=== PATIENT | male | born 1965 | race Hispanic/Latino ===

== ENCOUNTER 2017-04-06 16:49 | Emergency (ER) | payer SELFPAY ==
[2017-04-06 17:02] VITALS: BP 169/81; PULSE 79; RESP 18; TEMP 97.9; O2SAT 100; BMI 27.8
--- NOTE | 2017-04-06 19:07 | C.PDOC ---
History Of Present Illness 51 y/o male with htn, neuropathy, dm presents to ED with complaint of left foot pain; pt sts he missed his clinic appt last week and has run out of medications for pain and blood pressure. pt reports he has an appt this coming . pt requesting refill of Tramadol and nifedipine. pt denies any new complaints. Time Seen by Provider: 04/06/17 17:31 Chief Complaint (Nursing): Lower Extremity Problem/Injury History/Exam Limitations: no limitations Onset/Duration Of Symptoms: Other (chronic) Current Symptoms Are (Timing): Still Present Severity: Moderate Past Medical History Reviewed: Historical Data, Nursing Documentation, Vital Signs Vital Signs: Last Vital Signs Temp 97.9 F 04/06/17 17:02 Pulse 79 04/06/17 17:02 Resp 18 04/06/17 17:02 BP 169/81 H 04/06/17 17:02 Pulse Ox 100 04/07/17 13:48 - Medical History PMH: Back Problems, Diabetes, HTN Other PMH: neuropathy Family History: States: Unknown Family Hx - Social History Hx Tobacco Use: No Hx Alcohol Use: No Hx Substance Use: No - Immunization History Hx Tetanus Toxoid Vaccination: Yes (2 YEARS AGO) Hx Influenza Vaccination: Yes Hx Pneumococcal Vaccination: Yes Review Of Systems Constitutional: Negative for: Fever, Chills Cardiovascular: Negative for: Chest Pain Respiratory: Negative for: Cough Skin: Negative for: Rash Neurological: Negative for: Weakness, Numbness, Headache, Dizziness Physical Exam - Physical Exam Appears: Non-toxic, No Acute Distress Skin: Normal Color, Warm, Dry Head: Atraumatic, Normacephalic Extremity: Normal ROM, Tenderness, Pedal Edema (bilateral +1 pitting), No Calf Tenderness, Other (well healed scar to dorsum of left foot, ) Extremity: Bilateral: Atraumatic Pulses: Left Dorsalis Pedis: Normal, Right Dorsalis Pedis: Normal Neurological/Psych: Oriented x3, Normal Speech, Normal Cognition, Normal Motor, Normal Sensation ED Course And Treatment O2 Sat by Pulse Oximetry: 100 Medical Decision Making Medical Decision Making: [place] Rx reviewed for patient. pt has had multiple refills of tramadol in last few months, most notably an 8 day refill on 03/11/17 and a 5 day refill on 03/24/17. pt notified I would be unable to give a third refill of narcotic pain medication to him; pt became verbally abusive, telling me to 'go f--- myself', telling me I was lying, despite me explaining new law regarding mediation refills. . pt walked out of ED without waiting for htn medication refill. Disposition - Disposition Disposition: ELOPEMENT - ER ONLY Disposition Time: 18:40 Condition: GOOD - Clinical Impression Clinical Impression: Chronic pain, Medication refill
== END 2017-04-06 18:41 | disposition left against medical advice (07) ==
LOC: C.ER 16:49
DX: G89.29 Other chronic pain (principal); Z76.0 Encounter for issue of repeat prescription

== ENCOUNTER 2017-07-06 18:33 | Emergency (ER) | payer SELFPAY ==
[2017-07-06 18:33] VITALS: BMI 27.8
[2017-07-06 18:39] VITALS: BP 164/78; PULSE 79; RESP 18; TEMP 98; O2SAT 100
== END 2017-07-06 18:39 | disposition left against medical advice (07) ==
LOC: C.ER 18:33
DX: M79.606 Pain in leg, unspecified (principal); Z02.9 Encounter for administrative examinations, unspecified

== ENCOUNTER 2017-07-07 21:03 | Emergency (ER) | payer SELFPAY ==
[2017-07-07 21:04] VITALS: BMI 27.8
[2017-07-07 21:17] VITALS: RESP 18; O2SAT 100
--- NOTE | 2017-07-07 21:28 | C.PDOC ---
History Of Present Illness A 51 year old male, whose past medical history includes hypertension, non- insulin dependent diabetes mellitus, diabetic neuropathy, chronic lower legs pain, presents to the emergency department requesting refill on " all my medication". The patient reports, he ran out of his medications a few days ago. At present time, Pt complaining of right lower leg pain worse for past few days. Patrient admits, " pain is chronic, had similar in past, need Tramadol for pain". Otherwise, patient denies severe headaches,dizziness, fever, vision changes, focal deficits, chest pain, shortness of breath, dyspnea, palpitation, diaphoresis, abdominal pain, nausea, vomiting, diarrhea, denies new weakness, sensory or vascular deficits to B/L LEs. Ambulate to ED for evaluation, not in any apparent distress. FSBS 123 Time Seen by Provider: 07/07/17 21:15 Chief Complaint (Nursing): Med Refill History Per: Patient History/Exam Limitations: no limitations Onset/Duration Of Symptoms: Other Past Medical History Vital Signs: Last Vital Signs Temp 97.8 F 07/07/17 21:06 Pulse 75 07/07/17 21:06 Resp 18 07/07/17 21:06 BP 198/82 H 07/07/17 21:06 Pulse Ox 100 07/07/17 21:46 - Medical History PMH: Back Problems, Diabetes, HTN Family History: States: Unknown Family Hx - Social History Hx Tobacco Use: No Hx Alcohol Use: No Hx Substance Use: No - Immunization History Hx Tetanus Toxoid Vaccination: Yes Hx Influenza Vaccination: Yes Hx Pneumococcal Vaccination: Yes Review Of Systems Except As Marked, All Systems Reviewed And Found Negative. Constitutional: Negative for: Fever Eyes: Negative for: Vision Change Cardiovascular: Negative for: Chest Pain Respiratory: Negative for: Shortness of Breath Gastrointestinal: Negative for: Nausea, Vomiting, Abdominal Pain, Diarrhea Neurological: Negative for: Weakness, Numbness, Change in Speech, Confusion, Headache Physical Exam - Physical Exam Appears: Well, Non-toxic, No Acute Distress Skin: Normal Color, Warm, Dry Head: Normacephalic Eye(s): bilateral: PERRL Nose: No Flaring, No Discharge Oral Mucosa: Moist, No Drooling Throat: No Drooling Neck: Supple Cardiovascular: Rhythm Regular, No JVD, Other ((-) carotid bruits) Respiratory: No Stridor, No Wheezing Gastrointestinal/Abdominal: Soft, No Tenderness, No Distention, No Guarding Back: No CVA Tenderness Extremity: No Pedal Edema, No Calf Tenderness (B/L), No Deformity, Other (trace ankle edema to bilaterally, no erythema.) Extremity: Bilateral: Atraumatic Neurological/Psych: Oriented x3, Normal Speech, Normal Cognition, Normal Motor, Normal Sensation, Normal Reflexes ED Course And Treatment O2 Sat by Pulse Oximetry: 100 Pulse Ox Interpretation: Normal Progress Note: On re-evaluation, pt is afebrile, hemodynamicaly stable. Non- toxic. AMbulatory in ED with stable gait. PUlseOx 100% RA. ENT: no acute findings. Neck: Supple, (-) JVD, (-) catorid bruits. CVS: (+)S1S2, reg, (-) murmur. Lungs: CTA B/L, BS equal B/L. ABd: benign. Neuorlogicaly intact. Pt was medicated in ED. [place] review, pt has multiple rx for Tramadol with last written on 06/28/17 #10 by ED provider from [facility]. PT has clinical findings c/w HTN, NIDDM, chronic pain, medication refill. Pt advised. ref. to f/u with PMD in 2-3 days for re-eval. and further medictaion refill, pain control. return to ED if any new changes. Medical Decision Making Medical Decision Making: Treatment Plan: -- Glucotrol, metFORMIN, Procardia, Ultram Progress Notes: Disposition Counseled Patient/Family Regarding: Diagnosis, Need For Followup, Rx Given - Disposition Referrals: Zahra Muñoz MD [Primary Care Provider] - [facility] [Outside] Disposition: HOME/ ROUTINE Disposition Time: 22:14 Condition: STABLE Additional Instructions: Take medication as prescribed Follow up with PMD, Pain Management in 2-3 days for re-evaluation and further medication refill. Return to ED if any worsening or new changes. Prescriptions: GlipiZIDE [Glucotrol] 5 mg PO DAILY #20 tab metFORMIN [glucOPHAGE] 500 mg PO BID #30 tab NIFEdipine ER [Procardia XL] 60 mg PO DAILY #14 ter traMADol [Ultram] 50 mg PO Q12 #10 tab Instructions: Medicine Refill (ED), Hypertension (ED), Diabetes Mellitus Type 2 in Adults (ED), Diabetic Neuropathy (ED) Forms: [facility] (Pashto) - Clinical Impression Clinical Impression: Hypertension, Neuropathy, Diabetes, Medication refill - Scribe Statement The provider has reviewed the documentation as recorded by the Scribe Sheree Hillman All medical record entries made by the Scribe were at my direction and personally dictated by me. I have reviewed the chart and agree that the record accurately reflects my personal performance of the history, physical exam, medical decision making, and the department course for this patient. I have also personally directed, reviewed, and agree with the discharge instructions and disposition.
[2017-07-07] MEDS ORDERED: NIFEdipine 60 mg ER Tab PO STA ×2 (21:48→21:53)
[2017-07-07 22:20] VITALS: BP 190/81; PULSE 68; TEMP 98.1
== END 2017-07-07 22:40 | disposition home or self-care (01) ==
LOC: C.ER 21:03 → SUPCPDRO 21:03 → C.ER 22:40
DX: Z76.0 Encounter for issue of repeat prescription (principal); I10 Essential (primary) hypertension; E11.40 Type 2 diabetes mellitus with diabetic neuropathy, unspecified

== ENCOUNTER 2017-11-08 19:43 | Emergency (ER) | payer SELFPAY ==
[2017-11-08 19:44] VITALS: BMI 27.8
[2017-11-08 20:32] VITALS: BP 183/83; PULSE 78; RESP 20; TEMP 98; O2SAT 98
--- NOTE | 2017-11-08 20:50 | C.PDOC ---
History Of Present Illness 51 years old patient presents to ED stating that he has lost his medication metformin and tramadol.Patient is requesting for a refill and states his last dose was today. Patient denies any physical complaints. Time Seen by Provider: 11/08/17 20:38 Chief Complaint (Nursing): Med Refill History Per: Patient History/Exam Limitations: no limitations Onset/Duration Of Symptoms: Hrs Current Symptoms Are (Timing): Still Present Recent travel outside of the [place]: No Past Medical History Reviewed: Historical Data, Nursing Documentation, Vital Signs Vital Signs: Last Vital Signs Temp 98 F 11/08/17 20:28 Pulse 78 11/08/17 20:28 Resp 20 11/08/17 20:28 BP 183/83 H 11/08/17 20:28 Pulse Ox 98 11/09/17 01:44 - Medical History PMH: Back Problems, Diabetes, HTN Surgical History: No Surg Hx Family History: States: No Known Family Hx - Social History Hx Tobacco Use: No Hx Alcohol Use: No Hx Substance Use: No - Immunization History Hx Tetanus Toxoid Vaccination: Yes Hx Influenza Vaccination: Yes Hx Pneumococcal Vaccination: Yes Review Of Systems Psych: Negative for: Depression, Suicidal ideation ED Course And Treatment O2 Sat by Pulse Oximetry: 98 (Room air ) Pulse Ox Interpretation: Normal Medical Decision Making Medical Decision Making: [place] MEDIA RELATIONS MANAGER AWARE shows patient has long Hx of prescription refills of Tramadol for more than a year. Patient was advised he can not be prescribed with Tramadol since he was last prescribed November 05; then patient became angry and left before obtaining Physical Exam. Disposition - Disposition Disposition: ELOPEMENT - ER ONLY Disposition Time: 20:50 Condition: STABLE Forms: [facility] (French) - Clinical Impression Clinical Impression: Medication refill - PA / [employer]ICER / Resident Statement MD/DO has reviewed & agrees with the documentation as recorded. - Scribe Statement The provider has reviewed the documentation as recorded by the Romulo Jackson All medical record entries made by the Claudiaibyajaira were at my direction and personally dictated by me. I have reviewed the chart and agree that the record accurately reflects my personal performance of the history, physical exam, medical decision making, and the department course for this patient. I have also personally directed, reviewed, and agree with the discharge instructions and disposition.
== END 2017-11-08 20:51 | disposition left against medical advice (07) ==
LOC: C.ER 19:43
DX: Z76.0 Encounter for issue of repeat prescription (principal); I10 Essential (primary) hypertension; E11.9 Type 2 diabetes mellitus without complications

== ENCOUNTER 2018-04-07 18:21 | Emergency (ER) | payer OTHER ==
[2018-04-07 18:21] VITALS: BMI 27.8
[2018-04-07 18:30] VITALS: BP 181/85; PULSE 77; RESP 18; TEMP 98.7; O2SAT 100
--- NOTE | 2018-04-07 18:44 | C.PDOC ---
History Of Present Illness 52 year old male presents to the ER requesting a refill of his medications. Patient ran out yesterday, he is pending a follow up with his PMD, states "I THOUGHT I COULD LAST UNTIL THEN". He is currently complaining of exacerbation of her chronic leg harris. Denies any new symptoms or injury. REQUESTING MED REFILL. PS RAN OUT YESTERDAY, PENDING PMD FU 04/10. "I THOUGHT I COULD LAST UNTIL THEN". CO EXAC CHRONIC B/L LOWER LEG PAIN. NO NEW SX, INJURY EXAM MILD DIST NONTOXIC EXT ATRAUM NO SWELL REMAINDE RNEG Time Seen by Provider: 04/07/18 18:41 Chief Complaint (Nursing): Med Refill History Per: Patient History/Exam Limitations: no limitations Onset/Duration Of Symptoms: Hrs Recent travel outside of the [place]: No Past Medical History Reviewed: Historical Data, Nursing Documentation, Vital Signs Vital Signs: Last Vital Signs Temp 98.7 F 04/07/18 18:27 Pulse 77 04/07/18 18:27 Resp 18 04/07/18 18:27 BP 181/85 H 04/07/18 18:27 Pulse Ox 100 04/07/18 18:44 - Medical History PMH: Back Problems, Diabetes, HTN Family History: States: Unknown Family Hx - Social History Hx Tobacco Use: No Hx Alcohol Use: No Hx Substance Use: No - Immunization History Hx Tetanus Toxoid Vaccination: Yes Hx Influenza Vaccination: Yes Hx Pneumococcal Vaccination: Yes Review Of Systems Musculoskeletal: Positive for: Leg Pain Neurological: Negative for: Weakness, Numbness Physical Exam - Physical Exam Appears: Non-toxic, Other (Mild distress) Skin: Normal Color, Warm, Dry Head: Atraumatic, Normacephalic Eye(s): bilateral: Normal Inspection Extremity: Normal ROM (x4), Capillary Refill (<2 seconds), No Deformity, No Swelling, Other (Atraumatic) Pulses: Left Dorsalis Pedis: Normal, Right Dorsalis Pedis: Normal Neurological/Psych: Oriented x3, Normal Speech, Normal Motor, Normal Sensation Gait: Steady ED Course And Treatment O2 Sat by Pulse Oximetry: 100 (Room air) Pulse Ox Interpretation: Normal Medical Decision Making Medical Decision Making: Tramadol administered. Disposition Counseled Patient/Family Regarding: Diagnosis, Need For Followup, Rx Given - Disposition Referrals: YOUR,PMD [Other] Disposition: HOME/ ROUTINE Disposition Time: 18:42 Condition: IMPROVED Prescriptions: metFORMIN [glucOPHAGE] 500 mg PO BID #14 tab NIFEdipine ER [Procardia XL] 60 mg PO DAILY #7 ter traMADol [Ultram] 50 mg PO Q12 #10 tab Instructions: Chronic Pain (DC) Forms: [employer] (Indonesian) - Clinical Impression Clinical Impression: Medication refill, Chronic pain - Scribe Statement The provider has reviewed the documentation as recorded by the Scribyajaira Martinez All medical record entries made by the Scribe were at my direction and personally dictated by me. I have reviewed the chart and agree that the record accurately reflects my personal performance of the history, physical exam, medical decision making, and the department course for this patient. I have also personally directed, reviewed, and agree with the discharge instructions and disposition.
== END 2018-04-07 18:55 | disposition home or self-care (01) ==
LOC: C.ER 18:21
DX: G89.29 Other chronic pain (principal); Z76.0 Encounter for issue of repeat prescription

== ENCOUNTER 2018-05-19 21:30 | Emergency (ER) | payer MEDICARE, OTHER ==
[2018-05-19 21:31] VITALS: BMI 27.8
[2018-05-19 21:58] VITALS: TEMP 98.4
--- NOTE | 2018-05-19 22:22 | C.PDOC ---
Time Seen by Provider: 05/19/18 22:21 Chief Complaint (Nursing): Dizziness/Lightheaded Past Medical History Vital Signs: Last Vital Signs Temp 98.4 F 05/19/18 21:51 Pulse 79 05/19/18 21:51 Resp 10 L 05/19/18 21:51 BP 150/68 05/19/18 21:51 Pulse Ox 96 05/19/18 21:51 - Medical History PMH: Back Problems, Diabetes, HTN Family History: States: Unknown Family Hx - Social History Hx Tobacco Use: No Hx Alcohol Use: No Hx Substance Use: No - Immunization History Hx Tetanus Toxoid Vaccination: Yes Hx Influenza Vaccination: Yes Hx Pneumococcal Vaccination: Yes ED Course And Treatment O2 Sat by Pulse Oximetry: 96 Disposition Counseled Patient/Family Regarding: Studies Performed, Diagnosis - Disposition Disposition Time: 22:22
--- NOTE | 2018-05-19 22:23 | C.PDOC ---
History Of Present Illness 52 y/o male with Hx of ESRD (On Dialysis MWF) presents to ED for complaints of lightheadedness and dizziness associated with chest pain that began earlier today while he was walking home. Patient reports he has been non-compliant with his medications. Patient also reports chronic foot pain and is requesting medication for it. Denies palpitations, fever, or chills. Time Seen by Provider: 05/19/18 22:21 Chief Complaint (Nursing): Dizziness/Lightheaded History Per: Patient History/Exam Limitations: no limitations Onset/Duration Of Symptoms: Hrs Current Symptoms Are (Timing): Still Present Recent travel outside of the [place]: No Past Medical History Reviewed: Historical Data, Nursing Documentation, Vital Signs Vital Signs: Last Vital Signs Temp 98.4 F 05/19/18 21:51 Pulse 88 05/19/18 23:30 Resp 16 05/19/18 23:30 BP 178/80 H 05/19/18 23:30 Pulse Ox 96 05/19/18 23:34 - Medical History PMH: Back Problems, Diabetes, HTN Family History: States: Unknown Family Hx - Social History Hx Tobacco Use: No Hx Alcohol Use: No Hx Substance Use: No - Immunization History Hx Tetanus Toxoid Vaccination: Yes Hx Influenza Vaccination: Yes Hx Pneumococcal Vaccination: Yes Review Of Systems Constitutional: Negative for: Fever, Chills Gastrointestinal: Negative for: Nausea, Vomiting, Abdominal Pain, Diarrhea Musculoskeletal: Positive for: Foot Pain Skin: Negative for: Rash Neurological: Positive for: Dizziness, Other (Lightheadedness). Negative for: Weakness, Numbness Physical Exam - Physical Exam Appears: Non-toxic, No Acute Distress Skin: Warm, Dry Head: Normacephalic Eye(s): bilateral: Normal Inspection Oral Mucosa: Moist Neck: Trachea Midline, Supple Chest: Symmetrical Cardiovascular: Rhythm Regular Respiratory: No Rales, No Rhonchi, No Wheezing Gastrointestinal/Abdominal: Soft, No Tenderness, No Distention Extremity: Normal ROM, No Deformity, Other (Dialysis graft on left arm ) Extremity: Bilateral: Atraumatic, Normal Color And Temperature, Normal ROM Pulses: Left Radial: Normal, Right Radial: Normal Neurological/Psych: Oriented x3, Normal Speech (Speaking in full sentences ) Gait: Steady ED Course And Treatment - Laboratory Results Result Diagrams: 05/19/18 23:16 05/19/18 23:16 ECG: Interpreted By Me, Viewed By Me ECG Rhythm: Sinus Rhythm (74), Nonspecific Changes (occ pac's) O2 Sat by Pulse Oximetry: 96 (RA) Pulse Ox Interpretation: Normal Progress Note: Adminstered Ofirmev and Tramadol. Ordered blood work, EKG, and CXR. Disposition Counseled Patient/Family Regarding: Studies Performed, Diagnosis, Need For Followup - Disposition Disposition: HOME/ ROUTINE Disposition Time: 22:23 Condition: FAIR Prescriptions: traMADol [Ultram] 50 mg PO BID PRN #6 tab PRN Reason: Pain, Severe (8-10) Instructions: Chronic Pain (DC) Forms: [employer] (Guamanian) - Clinical Impression Clinical Impression: Neuropathy - Scribe Statement The provider has reviewed the documentation as recorded by the Scribe Portillo Jackson All medical record entries made by the Scribe were at my direction and personally dictated by me. I have reviewed the chart and agree that the record accurately reflects my personal performance of the history, physical exam, medical decision making, and the department course for this patient. I have also personally directed, reviewed, and agree with the discharge instructions and disposition.
[2018-05-19] MEDS ORDERED: Acetaminophen IV 1,000 MG in Premixed IV 1 EA IV ONE (23:17)
[2018-05-19 23:38] LABS: BASO % 0.6 % (0.0-2.0); EOS # 0.1 K/uL (0.0-0.7); EOS % 2.2 % (0.0-4.0); HEMOGLOBIN 9.8 g/dL (12.0-18.0); LYMPH # 1.3 K/uL (1.0-4.3); LYMPH % 20.2 % (20.0-40.0); MEAN CELL VOLUME 87.8 fL (80.0-94.0); MEAN CORPUSCULAR HEMOGLOBIN 29.7 pg (27.0-31.0); MEAN CORPUSCULAR HGB CONC 33.9 g/dL (33.0-37.0); MEAN PLATELET VOLUME 9.8 fL (7.2-11.7); MONO # 0.6 K/uL (0.0-0.8); MONO % 8.8 % (0.0-10.0); NEUT # 4.4 K/uL (1.8-7.0); NEUT % 68.2 % (50.0-75.0); RBC 3.3 Mil/uL (4.40-5.90); RED CELL DISTRIBUTION WIDTH 13.5 % (11.5-14.5); WHITE BLOOD COUNT 6.4 K/uL (4.8-10.8)
[2018-05-19 23:53] LABS: ALB/GLOB RATIO 1.3 (1.0-2.1); ALBUMIN 4.2 g/dL (3.5-5.0); CALCIUM 8.6 mg/dl (8.6-10.4)
[2018-05-20 00:29] VITALS: BP 178/80; PULSE 88; RESP 16
[2018-05-20 00:40] VITALS: O2SAT 100
--- NOTE | 2018-05-20 12:18 | RAD ---
Date of service: 05/19/2018 PROCEDURE: CHEST RADIOGRAPH, 1 VIEW HISTORY: SOB COMPARISON: None available. FINDINGS: LUNGS: Clear. PLEURA: No pneumothorax or pleural fluid seen. CARDIOVASCULAR: No radiographic findings to suggest acute or significant cardiovascular disease. OSSEOUS STRUCTURES: No significant abnormalities. VISUALIZED UPPER ABDOMEN: Normal. OTHER FINDINGS: None. IMPRESSION: No active disease. Concordant results with the preliminary interpretation rendered by the emergency department physician procedure.
--- NOTE | 2018-05-20 17:42 | CARD ---
APPROVED REPORT Date of service: 05/19/2018 EKG Measurement Heart [id number] <Conclusion> Sinus rhythm with premature atrial complexes Otherwise normal ECG
== END 2018-05-20 00:40 | disposition home or self-care (01) ==
LOC: C.ER 21:30
DX: G62.9 Polyneuropathy, unspecified (principal)